=== PATIENT | male | born 1965 | race Hispanic/Latino ===

== ENCOUNTER 2016-06-04 14:27 | Emergency (ER) | payer SELFPAY ==
[~2016-06-04] VITALS: Ht 172.7 cm; Wt 85.0 kg
[~2016-06-04 14:27] MED LIST: NOMED
[2016-06-04 14:32] VITALS: BP 145/96; PULSE 76; RESP 20; O2SAT 100
[2016-06-04 15:23] LABS: BASOPHILS % (AUTO) 0.4 % (0-3); EOSINOPHILS % (AUTO) 1.4 % (0-5); MONOCYTES % (AUTO) 7.2 % (4-12); Mean Corpuscular Hemoglobin 29.6 pg (27.0-35.0); NEUTROPHILS % (AUTO) 52.2 % (40-74); Platelet Count 344 bil/L (150-400)
--- NOTE | 2016-06-04 17:05 | ED.REPORT ---
HPI-Abd Pain F 40 and Over Date of Service Jun 04, 2016 ED Provider: Rona Yu History of Present Illness: left flank pain radiating into the left groin, started intermint about 2 months ago but now is constant. no nausea with this. comes and goes 5/10. primary care is residency clinic. denies back problems. 3 days ago was doing some yard work and bent over and pain has been ongoing since then. Nursing Notes Stated Complaint: ABD PAIN LEFT SIDE Chief Complaint: Male Abdominal Pain Nursing Notes Reviewed: Yes Allergies: Coded Allergies: No Known Allergies (Unverified Allergy, Unknown, 08/29/13) Miscellaneous Medications No Historical Medication (No Historical Medication) Ea General Time Seen by MD: 17:03 Chief Complaint Abdominal pain Hx Obtained From: Patient Sudden in Onset?: No Onset Occurred: More than a week ago... 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 Ambulatory Status Independent Review of Systems Basic Review of Systems Eyes: Vision NL Allergy / Immune: No allergy Psychiatric: Normal thought content Physical Exam Vital Signs Vital Signs (First) Date Time Temp Pulse Resp B/P Pulse Ox O2 Delivery O2 Flow Rate FiO2 06/04/16 14:32 36.1 76 20 145/96 100 Room Air Initial VS: Reviewed, Vital signs normal Head / Eyes: Atraumatic, Normocephalic, PERRL ENT: Mucous membranes moist, Conjunctiva normal, No scleral icterus Neck: Supple, Non-tender, Full range of motion Lymphatic: No lymphadenopathy Extremities: Vascular intact, Neuro intact, No swelling, No tenderness Skin: Warm, Dry, No cyanosis Neurologic: Alert, Oriented, Nonfocal Psychiatric: Mood/affect normal, Behavior normal, Normal thought content General/Constitutional: Awake, Alert, No acute distress, Well appearing, Well developed, Well hydrated, Well nourished, Cooperative, Not toxic appearing Respiratory / Chest: Atraumatic, Breath sounds NL, Breath sounds = bilat, No respiratory distress Cardiovascular: Heart rate NL, Regular rhythm, Heart sounds NL, No gallop Abdomen: No guarding, No rebound, BS normoactive, No distention Tenderness/Guarding/Rebound: Positive: Tender LLQ... (Mild) Interpretation & Diagnostics Interpretation & Diagnostics: TECHNIQUE: Real-time scanning was performed of the scrotum and testicles, with image documentation. Color and pulse Doppler interrogation was performed of both testicles. COMPARISON: None. FINDINGS: Right: Testicle is normal in size at 3.7 x 1.5 x 2.6 cm, and homogenous in echotexture. Epididymis is normal in overall size and morphology. No hydrocele or varicoceles. Overlying scrotal skin is normal in thickness. Left: Testicle is normal in size at 3.4 x 1.5 x 2.7 cm, and homogeneous in echotexture. Epididymis is normal in overall size and morphology. No hydrocele or varicoceles. Overlying scrotal skin is normal in thickness. Spermatocele is noted. Doppler: Color and pulse Doppler demonstrate normal and symmetric arterial flow in both testicles. IMPRESSION: Spermatocele is noted on the left. Otherwise, unremarkable exam. Lab Results Interpretation Result Diagram: 06/04/16 1517 06/04/16 1517 Test 06/04/16 15:17 06/04/16 18:20 White Blood Count 9.1th/mm3 (3.8-10.1) Red Blood Count 4.79mil/mm3 (4.40-5.80) Hemoglobin 14.2g/dL (13.8-17.2) Hematocrit 41.2% (41.0-50.0) Mean Corpuscular Volume 86.0fL (81-100) Mean Corpuscular Hemoglobin 29.6pg (27.0-35.0) Mean Corpuscular Hemoglobin Concent 34.5% (32.0-37.0) Red Cell Distribution Width 12.3% (12.3-15.4) Platelet Count 344bil/L (150-400) Neutrophils (%) (Auto) 52.2% (40-74) Lymphocytes (%) (Auto) 38.6% (14-46) Monocytes (%) (Auto) 7.2% (4-12) Eosinophils (%) (Auto) 1.4% (0-5) Basophils (%) (Auto) 0.4% (0-3) Sodium Level 135mEq/L (134-144) Potassium Level 4.2mEq/L (3.5-5.2) Chloride Level 97mEq/L (97-108) Carbon Dioxide Level 24mmol/L (18-29) Blood Urea Nitrogen 11mg/dL (6-24) Creatinine 0.66mg/dL (0.76-1.27) Estimat Glomerular Filtration Rate 136mL/min (>59) Glucose Level 121mg/dL (60-99) Calcium Level 9.8mg/dL (8.5-10.1) Magnesium Level 2.0mg/dL (1.6-2.6) Total Bilirubin 0.3mg/dL (0.0-1.2) Aspartate Amino Transf (AST/SGOT) 22U/L (0-50) Alanine Aminotransferase (ALT/SGPT) 36U/L (0-44) Alkaline Phosphatase 77U/L (25-150) Total Protein 7.5g/dL (6.4-8.4) Albumin 4.6g/dL (3.4-5.0) Lipase 55U/L (13-60) Hold Morales Top Tube Received (Received) Urine Color Yellow (YELLOW) Urine Appearance Clear (CLEAR,HAZY) Urine pH 6.5 (5.0-8.0) Urine Specific [place] 1.010 (1.003-1.035) Urine Protein Negativemg/dL (NEG,TRACE) Urine Glucose (UA) Negativemg/dL (NEGATIVE) Urine Ketones Negativemg/dL (NEGATIVE) Urine Occult Blood Trace (NEGATIVE) Urine Nitrite Negative (NEGATIVE) Urine Bilirubin Negative (NEGATIVE) Urine Urobilinogen Normalmg/dL (NORMAL) Urine Leukocyte Esterase Negative (NEGATIVE) Urine RBC 0-2/hpf (0-2) Urine WBC 0-5/hpf (0-5) Urine Epithelial Cells Few/hpf (NONE-MOD) Urine Crystals None seen (NONE SEEN) Urine Bacteria Few/hpf (NONE-FEW) Urine Hyaline Casts None/lpf (NONE) Urine Granular Casts None seen (NONE SEEN) Urine Waxy Casts None seen (NONE SEEN) Urine Red Blood Cell Casts None seen (NONE SEEN) Urine White Blood Cell Casts None seen (NONE SEEN) Urine Mucus None seen (None Seen) Urine Trichomonas None seen (NONE SEEN) Urine Yeast None (NONE SEEN) Urinalysis Comment None Urine Culture Reflexed Not indicated Lab Results Interpretation: urine is negative CT Abd / Pelvis Interpretation NDICATIONS: left flank pain radiating into groin TECHNIQUE: Noncontrast 5 mm thick sections acquired from the diaphragms to the symphysis. 5 mm thick coronal and sagittal reformats were then performed. For radiation dose reduction, the following was used: automated exposure control, adjustment of mA and/or kV according to patient size. COMPARISON: None. FINDINGS: Image quality: Excellent. Lung bases: Lung bases are clear. Heart size is normal. Urinary system: Both kidneys are normal in size. No kidney stones. Exophytic left renal cyst is present. There is incidental note of a retroaortic left renal vein. No hydronephrosis or perinephric fat stranding. Both ureters appear non-dilated throughout their expected courses. Bladder wall thickness is normal; no calcified bladder stones. Other solid organs: Liver is mildly enlarged. The spleen is normal in size. 16 mm focus of low attenuation within the right hepatic lobe suggestive of cyst is noted. There is an overall appearance of hepatic steatosis. Gallbladder is unremarkable. Pancreas is normal in contours. No adrenal nodules. Peritoneum and bowel: Unenhanced bowel loops are nonobstructed. There is a very minimal appearance of pericolonic stranding within the distal descending colon with surrounding diverticula within the left lower pelvis. Nodes and vessels: No retroperitoneal or mesenteric adenopathy by size criteria. Aorta and inferior vena cava are normal in caliber. Abdominal wall: No ventral hernias. Pelvis: No free pelvic fluid. Fat-containing inguinal hernias are present. Bones: No suspicious bony lesions. No vertebral body compression fractures. IMPRESSION: 1. No nephro or ureterolithiasis. 2. Very minimal appearance of pericolonic stranding within the distal descending colon in the left lower pelvis with diverticula. Findings are suspicious for developing colitis secondary to diverticulitis. Re-Eval/Medical Decision Med Decision/Clinical Course 51 year old male presents with a 2 month hx of off and on pain on the left side radiating into the groin. This was made worse after during some yard work which involved bending and the pain has been ongoing since then. Exam indicates mild tenderness in the left lower abd. Exam is consistent with colitis. No sign of mesentric adenitis, pancreatitis or malignancy. Discussed with Dr. Bartholomew. treat with augmentin Discharge & Departure Primary Impression: Colitis Disposition: Home Additional Instructions: Your labs are normal. The urine looks good. The Ultrasound is normal. You have had a good response to the ibuprofen. The CT shows a mild infection on the left. Start with augmentin 875 in the am and pm for 10 days. Continue with the ibuprofen 800 mg 3 times a day. Return with fever , vomiting, increasing pain or any other concerns. Referrals: [facility] (PCP) EDSupervising Provider for APC: Cruz Bartholomew MD copies to: [facility] Rona Yu Jun 04, 2016 17:05
[2016-06-04 18:50] LABS: APPEARANCE,URINE CLEAR (CLEAR,HAZY); COLOR,URINE YELLOW (YELLOW); OCCULT BLOOD,URINE TRACE (NEGATIVE); PH,URINE 6.5 (5.0-8.0); UROBILINOGEN,URINE NORMAL (NORMAL)
--- NOTE | 2016-06-04 19:20 | DRSVH ---
PROCEDURE: CT KUB ([id number]) INDICATIONS: left flank pain radiating into groin TECHNIQUE: Noncontrast 5 mm thick sections acquired from the diaphragms to the symphysis. 5 mm thick coronal an d sagittal reformats were then performed. For radiation dose reduction, the following was used: aut omated exposure control, adjustment of mA and/or kV according to patient size. COMPARISON: None. FINDINGS: Image quality: Excellent. Lung bases: Lung bases are clear. Heart size is normal. Urinary system: Both kidneys are normal in size. No kidney stones. Exophytic left renal cyst is pre sent. There is incidental note of a retroaortic left renal vein. No hydronephrosis or perinephric fat stranding. Both ureters appear non-dilated throughout their expected courses. Bladder wall thickne ss is normal; no calcified bladder stones. Other solid organs: Liver is mildly enlarged. The spleen is normal in size. 16 mm focus of low atten uation within the right hepatic lobe suggestive of cyst is noted. There is an overall appearance of h epatic steatosis. Gallbladder is unremarkable. Pancreas is normal in contours. No adrenal nodules. Peritoneum and bowel: Unenhanced bowel loops are nonobstructed. There is a very minimal appearance o f pericolonic stranding within the distal descending colon with surrounding diverticula within the le ft lower pelvis. Nodes and vessels: No retroperitoneal or mesenteric adenopathy by size criteria. Aorta and inferior vena cava are normal in caliber. Abdominal wall: No ventral hernias. Pelvis: No free pelvic fluid. Fat-containing inguinal hernias are present. Bones: No suspicious bony lesions. No vertebral body compression fractures. IMPRESSION: 1. No nephro or ureterolithiasis. 2. Very minimal appearance of pericolonic stranding within the distal descending colon in the left lo wer pelvis with diverticula. Findings are suspicious for developing colitis secondary to diverticulit is. Dictated by: Elina Mcdonald M.D. on 06/04/2016 at 19:15 Approved by: Elina Mcdonald M.D. on 06/04/2016 at 19:18
--- NOTE | 2016-06-04 19:28 | DRSVH ---
PROCEDURE: US TESTICULAR SONOGRAM WITH DOPPLER INDICATIONS: pain TECHNIQUE: Real-time scanning was performed of the scrotum and testicles, with image documentation. Color and p ulse Doppler interrogation was performed of both testicles. COMPARISON: None. FINDINGS: Right: Testicle is normal in size at 3.7 x 1.5 x 2.6 cm, and homogenous in echotexture. Epididymis is normal in overall size and morphology. No hydrocele or varicoceles. Overlying scrotal skin is no rmal in thickness. Left: Testicle is normal in size at 3.4 x 1.5 x 2.7 cm, and homogeneous in echotexture. Epididymis is normal in overall size and morphology. No hydrocele or varicoceles. Overlying scrotal skin is no rmal in thickness. Spermatocele is noted. Doppler: Color and pulse Doppler demonstrate normal and symmetric arterial flow in both testicles. IMPRESSION: Spermatocele is noted on the left. Otherwise, unremarkable exam. Dictated by: Elina Mcdonald M.D. on 06/04/2016 at 19:25 Approved by: Elina Mcdonald M.D. on 06/04/2016 at 19:26
[2016-06-04 20:05] VITALS: BP_SYST 136; PULSE 67; RESP 18; O2SAT 99
== END 2016-06-04 20:06 | disposition home or self-care (01) ==
LOC: SED 14:27
DX: K52.9 Noninfective gastroenteritis and colitis, unspecified (principal); Z87.891 Personal history of nicotine dependence

== ENCOUNTER 2016-09-24 08:08 | Day surgery (SDC) | payer OTHER ==
[~2016-09-24] VITALS: Ht 170.2 cm; Wt 84.0 kg
[~2016-09-24 08:08] MED LIST changes: +0.9% Sodium Chloride 1,000 ML IV SCH; +ATOR20TA PO; +HYDR-4003 PO; +LISI-567 PO; +METF500T4 PO; +METH750T3 PO; -NOMED; +OMEP20CA11 PO; +Sodium Chloride LOK Flush 10 mL Syringe IV PRN; +fentaNYL-PF 50 mCg/mL 2 mL Inj IVPUSH PRN
[2016-09-24 08:40] VITALS: BP 139/89; PULSE 77; RESP 16; O2SAT 100
--- NOTE | 2016-09-24 09:29 | PCM.ENDCOL ---
Colonoscopy Date of Service: Sep 24, 2016 Physician Georges Cooper MD Pre Procedure Diagnosis: Abdominal pain Post Procedure Dx & Findings: Polyps diverticulosis and hemorrhoids Procedure Colonoscopy PROCEDURE IN DETAIL: Prep adequate Withdrawal time 10 minutes After unremarkable rectal examination the Olympus video colonoscope was inserted patient's anal canal and was advanced to cecum. Landmarks were identified including the ileocecal valve and appendiceal orifice. Scope further events the terminal ileum. Advanced 10 cm. Visualized terminal ileum show normal villous structures without any ulcer mass or erosion. Scope was withdrawn systematically. Visualized colonic mucosa showed healthy shiny mucosa with normal healthy-appearing vasculature. Patient had very small diverticula in the sigmoid colon. However we saw a few on the right side as well including cecum. Patient had 3 polyps in the sigmoid colon. 2 were about 2 mm in size. These were resected completely using cold snare. One was 1 mm in size which was resected completely using cold forcep. In the rectum retroflexion was done which showed hemorrhoids. Anal canal was inspected carefully on the way out and hemorrhoids noted. Impression Polyp 3 status post complete removal Diverticulosis Hemorrhoids No source of abdominal pain Recommendation Repeat colonoscopy 3 years Diverticular diet Presedation Assessment Risks and Benefits Informed consent was obtained from the patient after all risks and benefits including but not limited to drug reaction, infection, pain, bleeding, perforation, as well as alternatives were discussed. Patient monitoring Continuous pulse oximetry, cardiac monitoring, blood pressure monitoring, IV access, and oxygen at 2L per nasal cannula. Periprocedural Fentanyl: Fentanyl 100mcg Incrementally Midazolam: Midazolam 4mg Incrementally Complications There were no periprocedural complications identified. Post Procedure Plan Post Procedure Recommendations 1. Restrict activities today. 2. Resume normal activities in the morning. 3. Resume medications. 4. Patient informed of normal post procedure side effects as bloating, drowsiness, blood streaking in the stool. 5. average risk CRCS. If colon polyps come back as: -Hyperplastic- can repeat colonoscopy in 10 years -Tubular adenoma- repeat colonoscopy in 5 years -Tubulovillous/villous adenoma- repeat colonoscopy in 3 years -If any dysplasia- return to clinic as soon as possible 6. Please don't hesitate to call me with any questions. Georges Cooper MD Sep 24, 2016 09:29
[2016-09-24 09:32] VITALS: BP 148/89; PULSE 96; RESP 16; O2SAT 98
[2016-09-24 09:43] VITALS: BP 118/80; PULSE 82; RESP 16; O2SAT 97
--- NOTE | 2016-09-25 10:43 | PATH ---
SURGICAL PATHOLOGY Attending Physician:Georges Cooper M.D. CASE STATUS: Signed Out PATIENT NAME: SARKIS WINKLER PID: [id number] : 1965 DATE COLLECTED:09/24/2016 16:59 SPECIMEN: Colon, Polyp CLINICAL HISTORY: 1. SIGMOID COLON POLYPS FINAL DIAGNOSIS: 1.SIGMOID COLON POLYPS: HYPERPLASTIC POLYPS INVOLVING ALL BIOPSY FRAGMENTS. ICD10 K63.5 GROSS DESCRIPTION: The specimen is received in one formalin filled container labeled with the patient's name, sublabeled "sigmoid colon polyps" and consists of 3 portions of tissue which aggregate to 0.4 x 0.4 x 0.3 CM. The specimen is entirely submitted in one cassette. 09/24/2016 DAC MICRO DESCRIPTION: See diagnosis. ICD-9 CODES: CPT CODES: 1: 38908 Electronically Signed Out Tuan Lau MD [facility] Pathology [facility] [address], [place] [address] Technical component performed at [facility], [facility] [address], [place], [address]
== END 2016-09-24 23:59 | disposition home or self-care (01) ==
LOC: END 08:08
PROVIDERS: ATTEND Internal Medicine
DX: K63.5 Polyp of colon (principal); K57.30 Diverticulosis of large intestine without perforation or abscess without bleeding; K64.9 Unspecified hemorrhoids; R10.32 Left lower quadrant pain; I10 Essential (primary) hypertension; E11.9 Type 2 diabetes mellitus without complications; M54.16 Radiculopathy, lumbar region; Z79.84 Long term (current) use of oral hypoglycemic drugs
CPT/HCPCS: 45380; 45385; G0500; J2250; J3010; J7030